=== PATIENT | male | born 1965 | race Caucasian/White ===

== ENCOUNTER 2017-04-12 08:21 | Day surgery (SDC) | payer BC ==
--- NOTE | 2017-04-12 07:55 | HP ---
DATE OF SURGERY: 04/12/2017 HISTORY OF PRESENT ILLNESS: The patient is a 51 year-old who had some history of some diverticular disease. He denies any bloody stools. He had some constipation in the past. Family history negative for inflammatory bowel disease. He had a CT scan back in May where he had a short segment of diverticula of the sigmoid colon at that time. PAST MEDICAL HISTORY: Migraines in the past. Sleep apnea in the past. PAST SURGICAL HISTORY: Cholecystectomy, septal surgery, ganglion cyst removed and uvula surgery in the past. He had adenoma on colonoscopy and polypectomy in the past. MEDICATIONS: Propranolol, Zomig for migraines as needed. ALLERGIES: SULFA. FAMILY HISTORY: He has a sister with history of polyps, mother with lung cancer, father with prostate cancer. SOCIAL HISTORY: No smoking or alcohol abuse. REVIEW OF SYSTEMS: Twelve systems reviewed per admission assessment. No chest pain or palpitations other systems negative or noncontributory as above and per preadmission questionnaire. PHYSICAL EXAMINATION: GENERAL: No acute distress. HEENT: Sclerae nonicteric. NECK: No JVD. CHEST: Equal excursion, nonlabored breathing. CVS: Regular rate and rhythm. ABDOMEN: Soft. No peritoneal signs. EXTREMITIES: No significant edema. NEURO: Alert, oriented, moving extremities symmetrically. No gross motor deficits noted. IMPRESSION: History of some chronic diverticular disease in the past improved now, history of prior polyps in the past. The patient is in need of follow up colonoscopy with last colonoscopy was nearly three years ago. I feel he is a candidate. He was shown the risk sheet and explained the procedure in detail including but not limited to bleeding or infection, small risk of bowel injury or perforation possibly requiring open procedure, small risk of missed or nondiagnosis or incomplete exam possibly requiring barium enema, other studies or procedures, general risk of anesthesia or sedation, risk of bowel prep, postoperative risk of nausea or cramping but not limited to. He understands and agrees to the planned procedure and will proceed with outpatient colonoscopy given history of diverticular disease and some polyps in the past.
[~2017-04-12 08:21] MED LIST: Lactated Ringers 1,000 ML IV ONE; Lactated Ringers 1,000 ML IV SCH
[2017-04-12] MEDS ORDERED: Versed 2 MG/2 ML Injection IV ONE (08:22)
[2017-04-12] MEDS ORDERED: DIPRIVAN 200 MG/20 ML IV ONE (08:22)
[2017-04-12] MEDS ORDERED: Lactated Ringers 1,000 ML IV ONE (09:18)
[2017-04-12 12:02] VITALS: O2SAT 98
[2017-04-12 12:18] VITALS: BP 122/81; PULSE 58
--- NOTE | 2017-04-13 08:47 | OP ---
SURGERY DATE/TIME: 04/12/2017 1047 PREOPERATIVE DIAGNOSES: 1) History of polyps in the past. 2) History of some recurrent diverticulitis, need for follow up colonoscopy. POSTOPERATIVE DIAGNOSES: 1) Somewhat poor prep limiting colon exam. 2) Pancolonic diverticulosis left greater than right. 3) Small internal and external hemorrhoids. PROCEDURES: 1) Colonoscopy to terminal ileum with retrograde ileoscopy. 2) Retrograde ileoscopy. 3) Random cold biopsy to the left colon to evaluate for microscopic colitis. SURGEON: Dr. Leander Hale. ANESTHESIA: MAC. ESTIMATED BLOOD LOSS: Minimal. INDICATIONS: As noted above. Risks and benefits explained in detail but not limited to and consent obtained. DESCRIPTION OF PROCEDURE AND FINDINGS: The patient was taken to the operating room. MAC anesthesia introduced. After official time out and no disagreement with planned procedure, a digital rectal exam did not reveal any rectal masses. He did have some small internal and external hemorrhoids. Video colonoscope inserted and passed up the tortuous sigmoid, descending, transverse, ascending colon. With external pressure the scope was passed around to the cecum to the terminal ileum. Retrograde ileoscopy was performed. It was noted to be unremarkable terminal ileum. On withdrawal of the scope prep overall was somewhat poor limiting the exam for small lesions. Some semisolid liquidy and some solid stool limiting the exam for small lesions this was suction irrigated as well as possible but did limit the exam. The scope was slowly and carefully withdrawn. There were no signs of any large polyps, masses or obstructing lesions. He did have pancolitis, small diverticulosis with thickening of the Haustra folds that were in the sigmoid colon area without evidence of any actual mass. There was thickening of a fold consistent with history of diverticular disease. The scope is slowly and carefully withdrawn. For completeness as he has been having some intermittent left sided pain it was felt that he would benefit from biopsy for some microscopic colitis. Random cold biopsy taken in the left colon to evaluate for microscopic colitis. Good hemostasis was noted. Scope pulled back to the rectum. Small internal and external hemorrhoids were noted. The scope is withdrawn. The patient tolerated the procedure well. Findings discussed with the family out in the waiting area. I will see him back in the office to go over the results.
== END 2017-04-12 12:25 | disposition home or self-care (01) ==
LOC: SDC 08:21
PROVIDERS: ATTEND Surgery
PROC: 0DBG8ZX Excision of Left Large Intestine, Via Natural or Artificial Opening Endoscopic, Diagnostic (ICD-10-PCS; principal; 2017-04-12)
PROC: 0DJD8ZZ Inspection of Lower Intestinal Tract, Via Natural or Artificial Opening Endoscopic (ICD-10-PCS; 2017-04-12)
DX: K57.90 Diverticulosis of intestine, part unspecified, without perforation or abscess without bleeding (principal); Z86.010 Personal history of colon polyps; K64.4 Residual hemorrhoidal skin tags; K64.8 Other hemorrhoids; G47.30 Sleep apnea, unspecified; G43.909 Migraine, unspecified, not intractable, without status migrainosus
CPT/HCPCS: 00812; 88305; 93005; J2250; J2704